=== PATIENT | male | born 1955 | race Caucasian/White ===

== ENCOUNTER 2020-09-25 04:08 | Emergency (ER) | payer MEDICAID ==
[~2020-09-25] VITALS: Ht 172.7 cm; Wt 62.9 kg
[2020-09-25 04:16] VITALS: BP 147/102
--- NOTE | 2020-09-25 05:59 | NUR ---
PT. TO ROOM FROM LOBBY AT THIS TIME.
--- NOTE | 2020-09-25 06:03 | NUR ---
Patient presents with left groin pain radiating to lower back/ leg since June 2020 after a small fall in the garden. Patient states he was recently seen at [facility] and referred to outpatient MD but they didn't take his insurance. Patient states "I just need someone to help me." Call amaral in reach. Patient belongings at bedside. Bed in low position. Awaiting ERP.
[2020-09-25] MEDS ORDERED: KETOROLAC 60 MG/2 ML ONE (06:20)
--- NOTE | 2020-09-25 06:22 | NUR ---
Patient to XRAY at this time
[2020-09-25 06:28] LABS: MICROSCOPIC NOT IND
[2020-09-25] MEDS ORDERED: KETOROLAC 30 MG/1 ML IM ONE (06:30)
--- NOTE | 2020-09-25 06:53 | NUR ---
Bedside report given to PAT Piper
--- NOTE | 2020-09-25 06:57 | NUR ---
ASSUMING CARE OF PT AFTER BEDSIDE REPORT KATHY STEWART. PT RESTING IN BED.
--- NOTE | 2020-09-25 07:47 | NUR ---
PT RESTING IN BED. NADN. AWAITING RECHECK
--- NOTE | 2020-09-25 09:17 | NUR ---
TASK RN NOTE: UPON ENTRY TO ROOM, PT FULLY DRESSED AND READY TO DC.
== END 2020-09-25 09:18 | disposition home or self-care (01) ==
LOC: ED 08:38
DX: M54.42 Lumbago with sciatica, left side (principal); I10 Essential (primary) hypertension
CPT/HCPCS: 72110; 81003; 96372; 99284; J1885